=== PATIENT | male | born 1960 | race Caucasian/White ===

== ENCOUNTER 2017-12-29 19:58 | Inpatient (IN) | payer MEDICARE, MEDICAID ==
[~2017-12-29] VITALS: Ht 172.7 cm; Wt 76.2 kg
[2017-12-29 20:00] VITALS: BP 115/80
[2017-12-29] MEDS ORDERED: ABILIFY20 MG ORAL (20:01)
[2017-12-29] MEDS ORDERED: COLACE100 MG ORAL (20:02)
[2017-12-29] MEDS ORDERED: BENZTROPINE ME0.5 MG PO (20:02)
[2017-12-29] MEDS ORDERED: ATORVASTATIN CA20 MG ORAL (20:02)
[2017-12-29] MEDS ORDERED: DITROPAN XL5 MG ORAL (20:03)
[2017-12-29] MEDS ORDERED: DEPAKOTE250 MG PO (20:03)
[2017-12-29] MEDS ORDERED: BISACODYL5 MG RECTAL (20:04)
[2017-12-29] MEDS ORDERED: KLONOPIN1 MG ORAL (20:04)
[2017-12-29] MEDS ORDERED: MILK OF MA400 MG/51 ORAL (20:05)
[2017-12-29] MEDS ORDERED: NORCO 5-325 TA1 EACH ORAL (20:06)
[2017-12-29] MEDS ORDERED: SENNA8.6 M2 PO (20:06)
[2017-12-29] MEDS ORDERED: TRAZODONE HCL150 MG ORAL (20:07)
[2017-12-29] MEDS ORDERED: SEROQUEL200 MG ORAL (20:07)
[2017-12-29] MEDS ORDERED: ACETAMINOPHEN325 M1 ORAL (20:11)
[2017-12-29] MEDS ORDERED: Pantoprazole Inj IV ONE (20:15)
[2017-12-29 20:45] LABS: INR 1.1 (0.9-1.1)
[2017-12-29 20:54] LABS: RED BLOOD COUNT 6.47 M/UL (4.70-6.10); WHITE BLOOD COUNT 15.3 K/UL (4.8-10.8)
[2017-12-29 20:55] LABS: MEAN CORPUSCULAR VOLUME 86 FL (80-99); NEUTROPHILS % (AUTO) 83.1 % (45.0-75.0); PLATELET COUNT 255 K/UL (150-450); RED CELL DISTRIBUTION WIDTH 11.4 % (11.6-14.8)
[2017-12-29 20:56] LABS: ANION GAP 9 mmol/L (5-15); BASOPHILS % (AUTO) 0.3 % (0.0-2.0); BLOOD UREA NITROGEN 20 mg/dL (7-18); CALCIUM 9.7 MG/DL (8.5-10.1); CARBON DIOXIDE 30 MMOL/L (21-32); CHLORIDE 103 MMOL/L (98-107); CREATININE 1.7 MG/DL (0.55-1.30); LYMPHOCYTES % (AUTO) 8.2 % (20.0-45.0); MONOCYTES % (AUTO) 3.4 % (1.0-10.0); POTASSIUM 4.1 MMOL/L (3.5-5.1); SODIUM 142 MMOL/L (136-145)
[2017-12-29 21:01] LABS: ALANINE AMINOTRANSFERASE 51 U/L (12-78); ALBUMIN/GLOBULIN RATIO 0.9 (1.0-2.7); ALKALINE PHOSPHATASE 175 U/L (46-116); ASPARTATE AMINO TRANSFERASE 12 U/L (15-37); BILIRUBIN,TOTAL 0.7 MG/DL (0.2-1.0)
[2017-12-29 21:15] VITALS: BP 115/72
[2017-12-29 22:33] VITALS: BP 13/71
--- NOTE | 2017-12-29 23:25 | Emergency Room Report ---
History of Present Illness General Chief Complaint: Gastrointestinal Illness Present Illness HPI 57-year-old male presents ED for evaluation. Brought in by longterm facility for coffee-ground emesis at facility today. Occurred multiple times. Upon arrival patient complaining of abdominal pain, dull, epigastric, 8 out of 10, nonradiating. Denies fevers or chills. Denies chest pain or shortness of breath. No other aggravating relieving factors. Denies any other associated symptoms Allergies: Coded Allergies: CHLORPROMAZINE (Verified Allergy, Mild, 12/29/17) HALOPERIDOL (Verified Allergy, Mild, 12/29/17) PHENOBARBITAL (Verified Allergy, Mild, 12/29/17) Patient History Past Medical History: COPD, seizures, psych hx Past Surgical History: none Pertinent Family History: none Social History: Denies: smoking, alcohol use, drug use Immunizations: UTD Reviewed Nursing Documentation: PMH: Agreed; PSxH: Agreed Nursing Documentation-PMH Hx COPD: Yes History Of Psychiatric Problem: Yes - schizophrenia Hx Seizures: Yes Review of Systems All Other Systems: negative except mentioned in HPI Physical Exam Vital Signs Date Time Temp Pulse Resp B/P (MAP) Pulse Ox O2 Delivery O2 Flow Rate FiO2 12/29/17 19:50 97.7 111 20 111/81 93 Room Air 97.7 Sp02 EP Interpretation: reviewed, normal General Appearance: no apparent distress, alert, GCS 15, non-toxic Head: normocephalic, atraumatic Eyes: bilateral eye normal inspection, bilateral eye PERRL ENT: hearing grossly normal, normal pharynx, no angioedema, normal voice Neck: full range of motion, supple/symm/no masses Respiratory: chest non-tender, lungs clear, normal breath sounds, speaking full sentences Cardiovascular #1: regular rate, rhythm, no edema Cardiovascular #2: 2+ carotid (R), 2+ carotid (L), 2+ radial (R), 2+ radial (L) , 2+ dorsalis pedis (R), 2+ dorsalis pedis (L) Gastrointestinal: normal bowel sounds, non tender, soft, non-distended, no guarding, no rebound Rectal: deferred Genitourinary: normal inspection, no CVA tenderness Musculoskeletal: back normal, gait/station normal, normal range of motion, non- tender Neurologic: alert, oriented x3, responsive, motor strength/tone normal, sensory intact, speech normal Psychiatric: judgement/insight normal, memory normal, mood/affect normal, no suicidal/homicidal ideation Reflexes: 3+ bicep (R), 3+ bicep (L), 3+ tricep (R), 3+ tricep (L), 3+ knee (R) , 3+ knee (L) Skin: normal color, no rash, warm/dry, well hydrated Lymphatic: no adenopathy Medical Decision Making Diagnostic Impression: Primary Impression: Upper GI bleeding Additional Impression: Renal insufficiency ER Course Hospital Course 57 yo M presents to ED c/o coffee groud emesis Differential diagnoses include: UGIB, LGIB, gastritis Clinical course Patient placed on stretcher. potline monitor. After initial history and physical I ordered labs, IV fluids, protonix, EKG Labs - noted leukocytosis, Hb/Hct stable. BUN/Cr elevated EKG - NSR, no acute ischemic changes inteppreted by me Case discussed with Dr. Tierney and he agreed to accept the patient to his service for further care and support I feel this is a highly complex case requiring extensive working including EKG/ Rhythm strip, Xray/CT/US, Blood/urine lab work, repeat exams while in ED, and administration of strong opiates/narcotics for pain control, admission to hospital or close patient follow up. Diagnosis - UGIB Patient admitted to telemetry in serious condition Labs Test 12/29/17 20:20 White Blood Count 15.3 K/UL (4.8-10.8) Red Blood Count 6.47 M/UL (4.70-6.10) Hemoglobin 18.0 G/DL (14.2-18.0) Hematocrit 56.0 % (42.0-52.0) Mean Corpuscular Volume 86 FL (80-99) Mean Corpuscular Hemoglobin 30.0 PG (27.0-31.0) Mean Corpuscular Hemoglobin Concent 34.8 G/DL (32.0-36.0) Red Cell Distribution Width 11.4 % (11.6-14.8) Platelet Count 255 K/UL (150-450) Mean Platelet Volume 7.4 FL (6.5-10.1) Neutrophils (%) (Auto) 83.1 % (45.0-75.0) Lymphocytes (%) (Auto) 8.2 % (20.0-45.0) Monocytes (%) (Auto) 3.4 % (1.0-10.0) Eosinophils (%) (Auto) 0.0 % (0.0-3.0) Basophils (%) (Auto) 0.3 % (0.0-2.0) Prothrombin Time 11.2 SEC (9.30-11.50) Prothromb Time International Ratio 1.1 (0.9-1.1) Activated Partial Thromboplast Time 31 SEC (23-33) Sodium Level 142 MMOL/L (136-145) Potassium Level 4.1 MMOL/L (3.5-5.1) Chloride Level 103 MMOL/L (98-107) Carbon Dioxide Level 30 MMOL/L (21-32) Anion Gap 9 mmol/L (5-15) Blood Urea Nitrogen 20 mg/dL (7-18) Creatinine 1.7 MG/DL (0.55-1.30) Estimat Glomerular Filtration Rate 42.1 mL/min (>60) Glucose Level 148 MG/DL (74-106) Calcium Level 9.7 MG/DL (8.5-10.1) Total Bilirubin 0.7 MG/DL (0.2-1.0) Aspartate Amino Transf (AST/SGOT) 12 U/L (15-37) Alanine Aminotransferase (ALT/SGPT) 51 U/L (12-78) Alkaline Phosphatase 175 U/L (46-116) Total Protein 8.5 G/DL (6.4-8.2) Albumin 4.0 G/DL (3.4-5.0) Globulin 4.5 g/dL Albumin/Globulin Ratio 0.9 (1.0-2.7) Lipase 105 U/L (73-393) EKG Diagnostic Results Rate: normal Rhythm: NSR ST Segments: no acute changes ASA given to the pt in ED: No Rhythm Strip Diag. Results EP Interpretation: yes Rhythm: NSR, no PVC's, no ectopy Last Vital Signs Date Time Temp Pulse Resp B/P (MAP) Pulse Ox O2 Delivery O2 Flow Rate FiO2 12/29/17 22:33 97.7 82 21 13/71 100 Room Air 97.7 Status: improved Disposition: ADMITTED INPATIENT Condition: Serious Referrals: Micheal Tierney DO (PCP) Ryan Guerra MD Dec 29, 2017 23:25
[2017-12-30] VITALS: BP 98/77
[2017-12-30] MEDS ORDERED: Norco 5mg/325mg tab ORAL PRN (01:45)
[2017-12-30] MEDS ORDERED: Sennosides 8.6mg ORAL SCH (01:45)
[2017-12-30] MEDS: D5 1/2NS 1,000 ML IV SCH ×2 (03:00→19:29)
[2017-12-30] MEDS ORDERED: Sennosides 8.6mg ORAL PRN (03:45)
[2017-12-30 04:00] VITALS: BP 123/76
[2017-12-30 07:32] LABS: BASOPHILS % (AUTO) 0.6 % (0.0-2.0); EOSINOPHILS % (AUTO) 1.1 % (0.0-3.0); HEMATOCRIT 42.2 % (42.0-52.0); HEMOGLOBIN 15.1 G/DL (14.2-18.0); LYMPHOCYTES % (AUTO) 17.8 % (20.0-45.0); MEAN CORPUSCULAR VOLUME 83 FL (80-99); MONOCYTES % (AUTO) 7.8 % (1.0-10.0); NEUTROPHILS % (AUTO) 72.8 % (45.0-75.0); PLATELET COUNT 208 K/UL (150-450); RED BLOOD COUNT 5.08 M/UL (4.70-6.10); RED CELL DISTRIBUTION WIDTH 11.2 % (11.6-14.8); WHITE BLOOD COUNT 12.8 K/UL (4.8-10.8)
[2017-12-30 07:48] LABS: ANION GAP 7 mmol/L (5-15); BLOOD UREA NITROGEN 18 mg/dL (7-18); CALCIUM 8.3 MG/DL (8.5-10.1); CARBON DIOXIDE 25 MMOL/L (21-32); CHLORIDE 108 MMOL/L (98-107); CREATININE 1.2 MG/DL (0.55-1.30); POTASSIUM 4.1 MMOL/L (3.5-5.1); SODIUM 140 MMOL/L (136-145)
[2017-12-30 08:00] VITALS: BP 106/66
[2017-12-30] MEDS: Docusate 100mg cap ORAL SCH ×2 (08:26→08:34)
[2017-12-30] MEDS: Bisacodyl EC 5mg tab ORAL SCH ×2 (08:26→08:35)
[2017-12-30] MEDS: Milk of Magnesia 30ml Ud ORAL SCH ×2 (08:26→08:35)
[2017-12-30] MEDS: Depakote 500mg tab ORAL SCH ×3 (08:27→21:00)
--- NOTE | 2017-12-30 09:30 | History and Physical Report ---
DATE OF ADMISSION: 12/29/2017 APPROXIMATE TIME: 8 a.m. CONSULTANTS: 1. Jose Armando Sultana M.D. 2. Lonnie Small M.D. 3. Marj Arellano M.D. 4. Sedrick Christiansen M.D. CHIEF COMPLAINT: Vomiting blood and GI bleed. BRIEF HISTORY: The patient is a 57-year-old male from [facility] presented with the above-mentioned diagnosis, admitted to telemetry for further care. Currently, slightly anxious in bed, no complaint. REVIEW OF SYSTEMS: No chest pain. Slight short of breath. Slight nausea and vomiting. No diarrhea. PAST MEDICAL HISTORY: HIV and bipolar. PAST SURGICAL HISTORY: Right hip. MEDICATIONS: Include Lipitor, Desyrel, Abilify, Dulcolax, Klonopin, Depakote, Colace, , Seroquel, Senokot, Tylenol, and [place]. ALLERGIES: Haldol and Thorazine. SOCIAL HISTORY: Positive smoking. No alcohol. No intravenous drug abuse. FAMILY HISTORY: Noncontributory. PHYSICAL EXAMINATION: GENERAL: Slightly anxious in bed, oriented x3, no acute distress. VITAL SIGNS: Temperature is 97, pulse 81, respirations 18, and blood pressure 106/66. CARDIOVASCULAR: No murmurs. LUNGS: Distant and clear. ABDOMEN: Bowel sounds positive. Nontender. Nondistended. EXTREMITIES: No cyanosis, clubbing, or edema. NEUROLOGIC: The patient moves all extremities, slightly weak. LABORATORY AND DIAGNOSTIC DATA: Laboratories, at this time show white count 12.8, otherwise CBC is normal. BMP shows chloride 108, glucose 123, otherwise normal. INR is 1.1 and PTT is 31. ASSESSMENT: 1. GI bleed. 2. Vomiting blood. 3. HIV. 4. Bipolar. PLAN: 1. Continue previous medications. 2. NPO. 3. IV fluids. 4. Pain control. 5. OT, PT, dietary evaluation. 6. CBC and BMP in the morning. 7. Continue to follow the patient medically. Micheal Tierney D.O. DR: TRISH JOB#: [id number] CC:
--- NOTE | 2017-12-30 11:25 | Consultation ---
History of Present Illness General Date patient seen: Dec 30, 2017 Chief Complaint: Gastrointestinal Illness Reason for Consultation: inpatient management/copd Present Illness HPI 57-year-old male COPD, seizures, psych hx presented to ED for evaluation of coffee-ground emesis at facility, multiple times. Upon arrival patient complaining of abdominal pain, dull, epigastric, 8 out of 10, nonradiating. Denies fevers or chills. Denies chest pain or shortness of breath. No other aggravating relieving factors. Denies any other associated symptoms. Pt is admitted to [facility] for further evaluation. Allergies: Coded Allergies: CHLORPROMAZINE (Verified Allergy, Mild, 12/29/17) HALOPERIDOL (Verified Allergy, Mild, 12/29/17) PHENOBARBITAL (Verified Allergy, Mild, 12/29/17) Medication History Scheduled Aripiprazole* (Abilify*), 30 MG ORAL DAILY, (Reported) Atorvastatin Calcium* (Atorvastatin Calcium*), 5 MG ORAL BEDTIME, (Reported) Bisacodyl* (Dulcolax*), 10 MG RECTAL DAILY, (Reported) Clonazepam* (Klonopin*), 1 MG ORAL Q12HR, (Reported) Divalproex Sodium* (Depakote*), 500 MG PO Q12HR, (Reported) Docusate Sodium* (Colace*), 100 MG ORAL DAILY, (Reported) Magnesium Hydroxide* (Milk Of Magnesia*), 30 ML ORAL DAILY, (Reported) Oxybutynin Chloride (Ditropan Xl), 5 MG ORAL DAILY, (Reported) Quetiapine Fumarate* (Seroquel*), 300 MG ORAL DAILY, (Reported) Trazodone* (Trazodone*), 50 MG ORAL BEDTIME, (Reported) Scheduled PRN Acetaminophen* (Acetaminophen 325MG Tablet*), 325 MG ORAL Q4H PRN for Pain Scale (3-5), (Reported) Hydrocodone Bit/Acetaminophen 5-325* (Plains 5-325*), 1 TAB ORAL Q4H PRN for For Pain, (Reported) Miscellaneous Medications Benztropine Mesylate* (Cogentin*), 1 MG PO, (Reported) Sennosides (Senna), 2 MG PO, (Reported) Patient History Healthcare decision maker Resuscitation status Full Code Advanced Directive on File No Past Medical/Surgical History Past Medical/Surgical History: (1) COPD (chronic obstructive pulmonary disease) (2) Psychosis (3) Seizure disorder Review of Systems All Other Systems: negative except mentioned in HPI Physical Exam General Appearance: WD/WN Lines, tubes and drains: peripheral HEENT: normocephalic, atraumatic Neck: non-tender, normal alignment Respiratory/Chest: chest wall non-tender, lungs clear Cardiovascular/Chest: normal peripheral pulses, normal rate Abdomen: normal bowel sounds Genitourinary/Rectal: normal genital exam Extremities: normal range of motion Last 24 Hour Vital Signs Date Time Temp Pulse Resp B/P (MAP) Pulse Ox O2 Delivery O2 Flow Rate FiO2 12/30/17 10:46 Room Air 12/30/17 08:00 80 12/30/17 08:00 97.9 81 18 106/66 (79) 97 97.9 12/30/17 04:00 90 12/30/17 04:00 97.2 78 19 123/76 (92) 96 97.2 12/30/17 00:00 97.0 103 23 98/77 (84) 96 97.0 12/30/17 00:00 84 12/29/17 23:01 Room Air 12/29/17 22:33 97.7 82 21 13/71 100 Room Air 97.7 12/29/17 22:32 97.7 88 24 118/72 100 Room Air 97.7 12/29/17 21:15 97.7 84 21 115/72 100 Room Air 97.7 12/29/17 20:00 97.7 70 15 115/80 100 Room Air 97.7 12/29/17 19:50 97.7 111 20 111/81 93 Room Air 97.7 Intake and Output 12/29/17 12/30/17 19:00 07:00 Intake Total 150 ml Output Total 150 ml Balance 0 ml Intake Oral 150 ml Output Urine Total 150 ml Laboratory Tests Test 12/29/17 20:20 12/30/17 06:45 White Blood Count 15.3 K/UL (4.8-10.8) H 12.8 K/UL (4.8-10.8) H Red Blood Count 6.47 M/UL (4.70-6.10) H 5.08 M/UL (4.70-6.10) Hemoglobin 18.0 G/DL (14.2-18.0) 15.1 G/DL (14.2-18.0) Hematocrit 56.0 % (42.0-52.0) H 42.2 % (42.0-52.0) Mean Corpuscular Volume 86 FL (80-99) 83 FL (80-99) Mean Corpuscular Hemoglobin 30.0 PG (27.0-31.0) 29.6 PG (27.0-31.0) Mean Corpuscular Hemoglobin Concent 34.8 G/DL (32.0-36.0) 35.7 G/DL (32.0-36.0) Red Cell Distribution Width 11.4 % (11.6-14.8) L 11.2 % (11.6-14.8) L Platelet Count 255 K/UL (150-450) 208 K/UL (150-450) Mean Platelet Volume 7.4 FL (6.5-10.1) 8.3 FL (6.5-10.1) Neutrophils (%) (Auto) 83.1 % (45.0-75.0) H 72.8 % (45.0-75.0) Lymphocytes (%) (Auto) 8.2 % (20.0-45.0) L 17.8 % (20.0-45.0) L Monocytes (%) (Auto) 3.4 % (1.0-10.0) 7.8 % (1.0-10.0) Eosinophils (%) (Auto) 0.0 % (0.0-3.0) 1.1 % (0.0-3.0) Basophils (%) (Auto) 0.3 % (0.0-2.0) 0.6 % (0.0-2.0) Prothrombin Time 11.2 SEC (9.30-11.50) Prothromb Time International Ratio 1.1 (0.9-1.1) Activated Partial Thromboplast Time 31 SEC (23-33) Sodium Level 142 MMOL/L (136-145) 140 MMOL/L (136-145) Potassium Level 4.1 MMOL/L (3.5-5.1) 4.1 MMOL/L (3.5-5.1) Chloride Level 103 MMOL/L (98-107) 108 MMOL/L (98-107) H Carbon Dioxide Level 30 MMOL/L (21-32) 25 MMOL/L (21-32) Anion Gap 9 mmol/L (5-15) 7 mmol/L (5-15) Blood Urea Nitrogen 20 mg/dL (7-18) H 18 mg/dL (7-18) Creatinine 1.7 MG/DL (0.55-1.30) H 1.2 MG/DL (0.55-1.30) Estimat Glomerular Filtration Rate 42.1 mL/min (>60) > 60 mL/min (>60) Glucose Level 148 MG/DL (74-106) H 123 MG/DL (74-106) H Calcium Level 9.7 MG/DL (8.5-10.1) 8.3 MG/DL (8.5-10.1) L Total Bilirubin 0.7 MG/DL (0.2-1.0) Aspartate Amino Transf (AST/SGOT) 12 U/L (15-37) L Alanine Aminotransferase (ALT/SGPT) 51 U/L (12-78) Alkaline Phosphatase 175 U/L (46-116) H Total Protein 8.5 G/DL (6.4-8.2) H Albumin 4.0 G/DL (3.4-5.0) Globulin 4.5 g/dL Albumin/Globulin Ratio 0.9 (1.0-2.7) L Lipase 105 U/L (73-393) Microbiology Date/Time Source Procedure Growth Status 12/29/17 23:30 Rectum Received Height (Feet): 5 Height (Inches): 8.00 Weight (Pounds): 168 Medications Current Medications Medications (Trade) Dose Ordered Sig/Justin Route PRN Reason Start Time Stop Time Status Last Admin Dose Admin Acetaminophen (Tylenol) 325 mg Q4H PRN ORAL Pain Scale (3-5) 12/30/17 01:45 01/29/18 01:44 Acetaminophen/ Hydrocodone Bitart (Plains 5/325) 1 tab Q4H PRN ORAL For Pain 12/30/17 01:45 01/06/18 01:44 Aripiprazole (Abilify) 30 mg DAILY ORAL 12/30/17 09:00 01/29/18 08:59 12/30/17 08:26 Atorvastatin Calcium (Lipitor) 5 mg BEDTIME ORAL 12/30/17 21:00 01/29/18 20:59 Bisacodyl (Dulcolax) 10 mg DAILY ORAL 12/30/17 09:00 01/29/18 08:59 Clonazepam (KlonoPIN) 1 mg Q12HR ORAL 12/30/17 09:00 01/06/18 08:59 12/30/17 08:27 Dextrose/Sodium Chloride 1,000 ml @ 60 mls/hr [id number] IV 12/30/17 03:00 01/29/18 02:59 12/30/17 03:00 Divalproex Sodium (Depakote) 500 mg Q12HR ORAL 12/30/17 09:00 01/29/18 08:59 12/30/17 08:27 Docusate Sodium (Colace) 100 mg DAILY ORAL 12/30/17 09:00 01/29/18 08:59 Magnesium Hydroxide (Mom) 30 ml DAILY ORAL 12/30/17 09:00 01/29/18 08:59 Quetiapine Fumarate (SEROquel) 300 mg DAILY ORAL 12/30/17 09:00 01/29/18 08:59 12/30/17 08:27 Sennosides (Senokot) 1 tab DAILY PRN ORAL constipation 12/30/17 03:45 01/29/18 01:44 Trazodone HCl (Desyrel) 50 mg BEDTIME ORAL 12/30/17 21:00 01/29/18 20:59 Assessment/Plan Problem List: (1) Upper GI bleeding ICD Codes: K92.2 - Gastrointestinal hemorrhage, unspecified SNOMED: 61556402 (2) COPD (chronic obstructive pulmonary disease) ICD Codes: J44.9 - Chronic obstructive pulmonary disease, unspecified SNOMED: 50769882 (3) Psychosis ICD Codes: F29 - Unspecified psychosis not due to a substance or known physiological condition SNOMED: 75786373 (4) Seizure disorder ICD Codes: G40.909 - Epilepsy, unspecified, not intractable, without status epilepticus SNOMED: 724298653 Assessment/Plan npo iv fluids check h/h prbc prn respiratory treatment resume psych meds seizure precaution dvt prophylaxis. Lonnie Small MD Dec 30, 2017 11:25
[2017-12-30 12:00] VITALS: BP 98/65
[2017-12-30] MEDS ORDERED: LORazepam 1mg tab ORAL PRN (14:55)
[2017-12-30 16:00] VITALS: BP 97/61
[2017-12-30 20:00] VITALS: BP 96/71
[2017-12-30] MEDS: TraZODone 50mg tab ORAL SCH (20:35)
--- NOTE | 2017-12-30 23:45 | Consultation ---
DATE OF CONSULTATION: 12/30/2017 GASTROENTEROLOGY CONSULTATION CONSULTING PHYSICIAN: Mehran Short M.D. CHIEF COMPLAINT: I was asked to see this patient by Dr. Micheal Tierney for evaluation of gastrointestinal bleeding. HISTORY OF PRESENT ILLNESS: The patient is a 57-year-old white man with HIV, who comes into the hospital due to coffee-ground emesis in a nursing facility multiple times. The patient had some dull epigastric abdominal pain on admission, which did not improve. He also has not had anymore emesis overnight and therefore he wants to be placed on regular diet. He denies having had any history of peptic ulcer disease in the past and has never had endoscopy. PAST MEDICAL HISTORY: History of COPD, seizure disorder, psychiatric history, and HIV positivity. FAMILY HISTORY: Noncontributory. SOCIAL HISTORY: The patient smokes, but does not drink alcohol or use drugs. REVIEW OF SYSTEMS: Otherwise negative. PHYSICAL EXAMINATION: GENERAL: This is a well developed, well nourished white man, seen in his room. HEENT: Normocephalic and atraumatic. Sclerae anicteric. Oropharynx clear. NECK: Supple. CHEST: Clear to auscultation. CARDIOVASCULAR: Revealed regular rate. ABDOMEN: Soft. Good bowel sounds. There is no organomegaly. EXTREMITIES: Revealed no edema. NEUROLOGIC: Grossly nonfocal. LABORATORY DATA: Noted. ASSESSMENT: This patient presents with one-day history of nausea and vomiting, which appeared to be dark and possibly bleeding in nature. However, his H&H is very well preserved and he has not had any more vomiting or hematemesis. He was placed on a regular diet until the time of the endoscopy, which will not be for another 2 days. He is already on acid blockade. The indications, risks, alternatives, and possible complications of the endoscopic intervention were explained to the patient and informed consent was obtained. RECOMMENDATIONS: 1. P.o. diet as tolerated. 2. Endoscopy Monday. 3. Followup CBC. 4. Protonix. Thank you for asking me to participate in the care of this patient. Mehran Short M.D. DR: PEDRO JOB#: [id number] CC: FABI
[2017-12-31] VITALS: BP 102/73
--- NOTE | 2017-12-31 00:15 | Consultation ---
DATE OF CONSULTATION: 12/29/2017 CONSULTING PHYSICIAN: Marj Arellano M.D. HISTORY OF PRESENT ILLNESS: This is a 57-year-old male patient. The patient came to the hospital secondary to upper GI bleed, but he is very irritable and agitated. He has a history of schizoaffective, bipolar type. On interview, I saw and assessed him today. He is very irritable and agitated. I tried to talk to him about some of his past psychiatric history and psychotropic medications. He initially was selectively mute. He stated, "there is nothing wrong, I don't have any psych history, I shouldn't be on this crazy medications" and then he became selectively mute and seemed to be more agitated as the interview progressed. He is a very poor historian, but seemed to have very poor insight into psychiatric illness and he is having extreme mood lability and because of his increase in mood lability, that is why his attending has requested daily psychiatric consultation. MEDICAL PROBLEMS: He has HIV, GI bleeding, and vomiting as well. PSYCHOTROPIC MEDICATIONS ON ADMISSION: The patient is on a psychotropic medication regimen consisting of Ativan 1 mg every 6 hours p.r.n., Abilify 30 mg daily, Klonopin 1 mg twice a day, trazodone 50 mg nightly, Depakote 500 mg q.12 h., and Seroquel 200 mg nightly. ALLERGIES: Allergic to Haldol, Thorazine, and phenobarbital. SUBSTANCE ABUSE HISTORY: This patient is denying any use of any drug or alcohol use. FAMILY PSYCHIATRIC HISTORY: Denies. PAIN ASSESSMENT: 0/10. DEVELOPMENTAL PROBLEMS: Denies. SOCIAL HISTORY: The patient lives in [facility]. Financially supported by [employer] and Medicare. PSYCHIATRIC HISTORY: He is schizoaffective, bipolar type. He states he had previous psych admissions, but he is very angry about it. STRENGTHS: He is motivated to get better and has a place to live. WEAKNESSES: He is impulsive and minimal support system. MENTAL STATUS EXAMINATION: This is a male patient who is 57 years old. His appearance is disheveled. Attitude, irritable and agitated. Affect is guarded and restricted. Intellect is poor because he has no current events. Mood is depressed and anxious. Motor activity, psychomotor agitation. Attention span is poor because he is unable to spell world backwards. Orientation times x3, oriented to person, place, and time, but not to situation. Speech is low volume and slurred. Thought process is disorganized and illogical. Thought content, he has paranoia that people are plotting against him. Perception is poor because he has perceptions such as auditory hallucinations. Abstract reasoning, poor abstract reasoning because he does not understand proverbs and he only thinks in terms of concrete thinking. His insight is poor because he does not recognize having a mental disorder. Judgment is poor because he does not work on his consequences of his action. Short-term memory, 3/3 word recall after 5-minute delay with good short-term memory. Long-term memory is poor because he does not recognize long-term events in his life such as high school he went to. Suicidality, he admits to suicidal ideations intermittently with no plan. Able to contract for safety while in the hospital. Homicidality, denies. DIAGNOSES: 1. Schizoaffective, bipolar type. 2. Medical - gastrointestinal bleeding. 3. Psychosocial stressors - financial. PLAN: I am going to continue treating this patient with Ativan 1 mg every 6 hours p.r.n. anxiety and agitation, Abilify 30 mg daily, Klonopin 1 mg q.12 h., Depakote 500 mg q.12 h., Seroquel 300 mg nightly. Provided 20 minutes of cognitive behavioral therapy to identify his automatic negative thoughts and help him to convert those automatic negative thoughts to positive thoughts to reduce depression and anxiety. A 20 minutes of cognitive behavioral therapy. I would like to thank Dr. Micheal Tierney for this interesting consultation. I will be happy to follow this patient with you throughout his hospital course. Chart is reviewed and discussed with the staff. The patient was seen and assessed at bedside. Marj Arellano M.D. DR: REJI JOB#: [id number] CC:
[2017-12-31 04:00] VITALS: BP 100/63
[2017-12-31 08:00] VITALS: BP 110/63
--- NOTE | 2017-12-31 08:50 | General Progress Note ---
Assessment/Plan Problem List: (1) Bipolar 1 disorder ICD Codes: F31.9 - Bipolar disorder, unspecified SNOMED: 051508930 (2) GI (gastrointestinal bleed) ICD Codes: K92.2 - Gastrointestinal hemorrhage, unspecified SNOMED: 09125662 (3) Psychosis ICD Codes: F29 - Unspecified psychosis not due to a substance or known physiological condition SNOMED: 72676425 Status: unchanged Assessment/Plan ot pt diet abx ivf gi f/u cbc bmp am Subjective Constitutional: Reports: weakness Allergies: Coded Allergies: CHLORPROMAZINE (Verified Allergy, Mild, 12/29/17) HALOPERIDOL (Verified Allergy, Mild, 12/29/17) PHENOBARBITAL (Verified Allergy, Mild, 12/29/17) All Systems: reviewed and negative except above Subjective calm in bed Objective Last 24 Hour Vital Signs Date Time Temp Pulse Resp B/P (MAP) Pulse Ox O2 Delivery O2 Flow Rate FiO2 12/31/17 04:00 80 12/31/17 04:00 98.2 85 16 100/63 (75) 96 98.2 12/31/17 00:00 97.8 97 17 102/73 (83) 98 97.8 12/31/17 00:00 83 12/30/17 21:00 Room Air 12/30/17 20:00 97.2 89 18 96/71 (79) 97 97.2 12/30/17 20:00 74 12/30/17 16:00 92 12/30/17 16:00 97.3 90 18 97/61 (73) 100 97.3 12/30/17 12:00 97.5 81 18 98/65 (76) 97 97.5 12/30/17 12:00 82 12/30/17 10:46 Room Air Intake and Output 12/30/17 12/31/17 19:00 07:00 Intake Total 240 ml 931 ml Output Total 350 ml 800 ml Balance -110 ml 131 ml Intake Oral 240 ml 240 ml IV Total 691 ml Output Urine Total 350 ml 800 ml Height (Feet): 5 Height (Inches): 8.00 Weight (Pounds): 168 General Appearance: lethargic EENT: normal ENT inspection Neck: normal alignment Cardiovascular: normal peripheral pulses, normal rate, regular rhythm Respiratory/Chest: chest wall non-tender, lungs clear, normal breath sounds Abdomen: normal bowel sounds, non tender, soft Extremities: normal inspection Edema: no edema noted Arm (L), no edema noted Arm (R), no edema noted Leg (L), no edema noted Leg (R), no edema noted Pedal (L), no edema noted Pedal (R), no edema noted Generalized Neurologic: motor weakness Skin: normal pigmentation, warm/dry Micheal Tierney DO Dec 31, 2017 08:50
[2017-12-31] MEDS: Milk of Magnesia 30ml Ud ORAL SCH ×2 (09:00→10:10)
[2017-12-31] MEDS: Depakote 500mg tab ORAL SCH ×3 (09:00→20:51)
[2017-12-31] MEDS: Docusate 100mg cap ORAL SCH ×2 (09:00→10:11)
[2017-12-31] MEDS: Bisacodyl EC 5mg tab ORAL SCH (10:11)
[2017-12-31 11:17] LABS: BASOPHILS % (AUTO) 0.5 % (0.0-2.0); EOSINOPHILS % (AUTO) 2.3 % (0.0-3.0); HEMATOCRIT 41.1 % (42.0-52.0); HEMOGLOBIN 13.9 G/DL (14.2-18.0); LYMPHOCYTES % (AUTO) 23.5 % (20.0-45.0); MEAN CORPUSCULAR VOLUME 84 FL (80-99); NEUTROPHILS % (AUTO) 65.6 % (45.0-75.0); PLATELET COUNT 202 K/UL (150-450); RED BLOOD COUNT 4.91 M/UL (4.70-6.10); RED CELL DISTRIBUTION WIDTH 11.4 % (11.6-14.8); WHITE BLOOD COUNT 8.9 K/UL (4.8-10.8)
[2017-12-31 11:51] LABS: ALANINE AMINOTRANSFERASE 13 U/L (12-78); ALBUMIN 2.8 G/DL (3.4-5.0); ALBUMIN/GLOBULIN RATIO 0.8 (1.0-2.7); ALKALINE PHOSPHATASE 120 U/L (46-116); ANION GAP 9 mmol/L (5-15); ASPARTATE AMINO TRANSFERASE 10 U/L (15-37); BILIRUBIN,TOTAL 0.3 MG/DL (0.2-1.0); BLOOD UREA NITROGEN 12 mg/dL (7-18); CALCIUM 8.4 MG/DL (8.5-10.1); CARBON DIOXIDE 24 MMOL/L (21-32); CHLORIDE 105 MMOL/L (98-107); CREATININE 1.1 MG/DL (0.55-1.30); PHOSPHORUS 2.7 MG/DL (2.5-4.9); POTASSIUM 3.9 MMOL/L (3.5-5.1); SODIUM 138 MMOL/L (136-145)
[2017-12-31 12:00] VITALS: BP 99/45
[2017-12-31] MEDS: D5 1/2NS 1,000 ML IV SCH (13:41)
--- NOTE | 2017-12-31 13:57 | General Progress Note ---
Assessment/Plan Assessment/Plan Assessment - possible UGIB - HIV (+) - COPD - SZ d/o - Psych d/o Recommendations - PPI - Follow CBC - EGD in am Subjective Allergies: Coded Allergies: CHLORPROMAZINE (Verified Allergy, Mild, 12/29/17) HALOPERIDOL (Verified Allergy, Mild, 12/29/17) PHENOBARBITAL (Verified Allergy, Mild, 12/29/17) Subjective Feels OK no N/V tolerating PO for EGD in am Objective Last 24 Hour Vital Signs Date Time Temp Pulse Resp B/P (MAP) Pulse Ox O2 Delivery O2 Flow Rate FiO2 12/31/17 08:00 97.6 77 18 110/63 (79) 96 97.6 12/31/17 04:00 80 12/31/17 04:00 98.2 85 16 100/63 (75) 96 98.2 12/31/17 00:00 97.8 97 17 102/73 (83) 98 97.8 12/31/17 00:00 83 12/30/17 21:00 Room Air 12/30/17 20:00 97.2 89 18 96/71 (79) 97 97.2 12/30/17 20:00 74 12/30/17 16:00 92 12/30/17 16:00 97.3 90 18 97/61 (73) 100 97.3 Intake and Output 12/30/17 12/31/17 19:00 07:00 Intake Total 240 ml 931 ml Output Total 350 ml 800 ml Balance -110 ml 131 ml Intake Oral 240 ml 240 ml IV Total 691 ml Output Urine Total 350 ml 800 ml Laboratory Tests 12/31/17 09:53: White Blood Count 8.9, Red Blood Count 4.91, Hemoglobin 13.9L, Hematocrit 41.1L , Mean Corpuscular Volume 84, Mean Corpuscular Hemoglobin 28.4, Mean Corpuscular Hemoglobin Concent 33.9, Red Cell Distribution Width 11.4L, Platelet Count 202, Mean Platelet Volume 8.4, Neutrophils (%) (Auto) 65.6, Lymphocytes (%) (Auto) 23.5, Monocytes (%) (Auto) 8.0, Eosinophils (%) (Auto) 2.3, Basophils (%) (Auto) 0.5, Prothrombin Time 10.9, Prothromb Time International Ratio 1.0, Activated Partial Thromboplast Time 28, Sodium Level 138, Potassium Level 3.9, Chloride Level 105, Carbon Dioxide Level 24, Anion Gap 9, Blood Urea Nitrogen 12, Creatinine 1.1, Estimat Glomerular Filtration Rate > 60, Glucose Level 103, Calcium Level 8.4L, Phosphorus Level 2.7, Magnesium Level 1.7L, Total Bilirubin 0.3, Aspartate Amino Transf (AST/SGOT) 10L , Alanine Aminotransferase (ALT/SGPT) 13, Alkaline Phosphatase 120H, Total Protein 6.1L, Albumin 2.8L, Globulin 3.3, Albumin/Globulin Ratio 0.8L Height (Feet): 5 Height (Inches): 8.00 Weight (Pounds): 168 Objective WDWN NCAT supple CTA RRR abd soft ND NT no edema non focal Mehran Short MD Dec 31, 2017 13:57
[2017-12-31] MEDS ORDERED: D5 1/2NS 1000ml IV ONE (15:22)
[2017-12-31 16:00] VITALS: BP 105/60
[2017-12-31 20:00] VITALS: BP 123/71
--- NOTE | 2017-12-31 20:15 | Progress Note ---
DATE: 12/31/2017 SUBJECTIVE: This is a 57-year-old male patient with upper GI bleeding. This patient still has some mood lability, decline in cognition, worsened by the stress of his medical illness. That is why, his attending physician has requested daily psychiatric consultation for this patient. I saw and assessed him at the bedside. He is very confused and disorganized. Mood is labile, agitated and irritable. Cognition has declined below baseline, worsened by stress of his medical illness. That is why, his attending has requested daily psychiatric consultation. MENTAL STATUS EXAMINATION: This is a 57-year-old male. Appearance is disheveled. Attitude, irritable and agitated. Affect, guarded and restricted. Intellect poor. Mood depressed and anxious. Motor activity, psychomotor agitation. Attention span is poor. Orientation x2. Speech is pressured. Thought process, disorganized and illogical. Thought content, auditory hallucinations and paranoid delusions. Insight and judgment is poor. DIAGNOSIS: Schizoaffective, bipolar type. PLAN: Treat him with Abilify 30 mg daily, Depakote 500 mg q.12 h., Seroquel 300 mg at bedtime, and also 01:06__ q.6 h. p.r.n. anxiety and agitation, and trazodone 50 mg at bedtime. Provided 20 minutes of cognitive behavioral therapy to identify his automatic negative thoughts and to help him to convert those automatic negative thoughts to positive thoughts to reduce depression and suicidality. Chart is reviewed. Discussed with staff. A 20 minutes of cognitive behavioral therapy provided. Marj Arellano M.D. DR: KEVIN JOB#: [id number] CC:
[2017-12-31] MEDS: TraZODone 50mg tab ORAL SCH (20:32)
--- NOTE | 2017-12-31 21:35 | Consultation ---
Consult Note Consult Note [id number] Sedrick Christiansen MD Dec 31, 2017 21:34
[2018-01-01] MEDS: D5 1/2NS 1,000 ML IV SCH (04:32)
[2018-01-01] MEDS: Docusate 100mg cap ORAL SCH (09:00)
[2018-01-01] MEDS: Bisacodyl EC 5mg tab ORAL SCH (09:00)
[2018-01-01] MEDS: Milk of Magnesia 30ml Ud ORAL SCH (09:00)
[2018-01-01] MEDS: Depakote 500mg tab ORAL SCH (09:00)
[2018-01-01] MEDS ORDERED: LR 1000ml 1,000 ML IVLG SCH (09:09)
--- NOTE | 2018-01-01 09:09 | Anethesia Preoperative Eval ---
Anesthesia Pre-op PMH/ROS General Date of Evaluation: Jan 01, 2018 Time of Evaluation: 09:36 Anesthesiologist: Lavelle ASA Score: ASA 3 Mallampati Score Class I : Soft palate, uvula, fauces, pillars visible Class II: Soft palate, uvula, fauces visible Class III: Soft palate, base of uvula visible Class IV: Only hard plate visible Mallampati Classification: Class II Surgeon: Rd Diagnosis: Abd Pain Surgical Procedure: EGD Anesthesia History: none Social History: current smoker Family History: no anesthesia problems Allergies: Coded Allergies: CHLORPROMAZINE (Verified Allergy, Mild, 12/29/17) HALOPERIDOL (Verified Allergy, Mild, 12/29/17) PHENOBARBITAL (Verified Allergy, Mild, 12/29/17) Medications: see eMAR Patient NPO?: Yes Past Medical History Pulmonary: Reports: COPD Gastrointestinal/Genitourinary: Reports: ESRD - Dialysis Neurologic/Psychiatric: Reports: other - Seizures Hematology/Immune: Reports: other - HIV Anesthesia Pre-op Phys. Exam Physician Exam Last Vital Signs Date Time Temp Pulse Resp B/P (MAP) Pulse Ox O2 Delivery O2 Flow Rate FiO2 01/01/18 04:00 87 12/31/17 21:00 Room Air 12/31/17 20:00 98.2 18 123/71 (88) 96 98.2 Constitutional: NAD Neurologic: CN 2-12 intact Cardiovascular: RRR Respiratory: CTA Gastrointestinal: S/NT/ND Airway Exam Mallampati Score: Class II MO: limited ROM: limited Teeth: missing, intact Anesthesia Pre-op A/P Labs Hematology Test 12/31/17 09:53 White Blood Count 8.9 K/UL (4.8-10.8) Red Blood Count 4.91 M/UL (4.70-6.10) Hemoglobin 13.9 G/DL (14.2-18.0) L Hematocrit 41.1 % (42.0-52.0) L Mean Corpuscular Volume 84 FL (80-99) Mean Corpuscular Hemoglobin 28.4 PG (27.0-31.0) Mean Corpuscular Hemoglobin Concent 33.9 G/DL (32.0-36.0) Red Cell Distribution Width 11.4 % (11.6-14.8) L Platelet Count 202 K/UL (150-450) Mean Platelet Volume 8.4 FL (6.5-10.1) Neutrophils (%) (Auto) 65.6 % (45.0-75.0) Lymphocytes (%) (Auto) 23.5 % (20.0-45.0) Monocytes (%) (Auto) 8.0 % (1.0-10.0) Eosinophils (%) (Auto) 2.3 % (0.0-3.0) Basophils (%) (Auto) 0.5 % (0.0-2.0) Coagulation Test 12/31/17 09:53 Prothrombin Time 10.9 SEC (9.30-11.50) Prothromb Time International Ratio 1.0 (0.9-1.1) Activated Partial Thromboplast Time 28 SEC (23-33) Chemistry Test 12/31/17 09:53 Sodium Level 138 MMOL/L (136-145) Potassium Level 3.9 MMOL/L (3.5-5.1) Chloride Level 105 MMOL/L (98-107) Carbon Dioxide Level 24 MMOL/L (21-32) Anion Gap 9 mmol/L (5-15) Blood Urea Nitrogen 12 mg/dL (7-18) Creatinine 1.1 MG/DL (0.55-1.30) Estimat Glomerular Filtration Rate > 60 mL/min (>60) Glucose Level 103 MG/DL (74-106) Calcium Level 8.4 MG/DL (8.5-10.1) L Phosphorus Level 2.7 MG/DL (2.5-4.9) Magnesium Level 1.7 MG/DL (1.8-2.4) L Total Bilirubin 0.3 MG/DL (0.2-1.0) Aspartate Amino Transf (AST/SGOT) 10 U/L (15-37) L Alanine Aminotransferase (ALT/SGPT) 13 U/L (12-78) Alkaline Phosphatase 120 U/L (46-116) H Total Protein 6.1 G/DL (6.4-8.2) L Albumin 2.8 G/DL (3.4-5.0) L Globulin 3.3 g/dL Albumin/Globulin Ratio 0.8 (1.0-2.7) L Risk Assessment & Plan Assessment: ASA 3 Plan: GA Status Change Before Surgery: Eyal Garcia MD Jan 01, 2018 09:09
[2018-01-01] MEDS ORDERED: HYDROcodone/Acetamin 7.5/325 tab ORAL PRN (09:15)
[2018-01-01] MEDS ORDERED: LORazepam Inj 2mg/ml 1ml IV PRN (09:15)
[2018-01-01] MEDS ORDERED: Atropine Sulfate 0.4mg/ml inj IVP PRN (09:15)
[2018-01-01] MEDS ORDERED: Norco 5mg/325mg tab ORAL PRN (09:15)
[2018-01-01] MEDS ORDERED: DiphenhydrAMINE 50mg/ml Inj IVP PRN (09:15)
[2018-01-01] MEDS ORDERED: Ketorolac 30mg Inj IV PRN ×2 (09:15)
[2018-01-01] MEDS ORDERED: Hydromorphone 0.5mg/0.5ml inj IVP PRN (09:15)
[2018-01-01] MEDS ORDERED: Meperidine 50mg/ml Inj(FOR RIGORS ONLY) IVP PRN (09:15)
[2018-01-01] MEDS ORDERED: fentaNYL 100 mcg/2 mL IV PRN (09:15)
[2018-01-01] MEDS ORDERED: Midazolam 2mg/2ml Inj IVP PRN (09:15)
[2018-01-01] MEDS ORDERED: oxyCODONE HCL/Acetaminophen 5/325mg ORAL PRN (09:15)
--- NOTE | 2018-01-01 09:19 | Pre-Procedure Note/Attestation ---
Pre-Procedure Note/Attestation Complete Prior to Procedure Planned Procedure: not applicable Procedure Narrative: egd Indications for Procedure Pre-Operative Diagnosis: gib Attestation I attest that I discussed the nature of the procedure; its benefits; risks and complications; and alternatives (and the risks and benefits of such alternatives ), prior to the procedure, with the patient (or the patient's legal inside technical sales representative). I attest that, if there was a reasonable possibility of needing a blood transfusion, the patient (or the patient's legal inside technical sales representative) was given the [facility] standardized written summary, pursuant to the Harry Jazmyn Blood Safety Act ([place] Health and Safety Code # 1645, as amended). I attest that I re-evaluated the patient just prior to the surgery and that there has been no change in the patient's H&P, except as documented below: Jose Armando Sultana MD Jan 01, 2018 09:19
[2018-01-01] MEDS ORDERED: Propofol 200mg/20ml IV ONE (09:30)
[2018-01-01] MEDS ORDERED: Lidocaine 1% MPF 10mg/ml 5ml ONE (09:30)
--- NOTE | 2018-01-01 09:34 | General Progress Note ---
Assessment/Plan Problem List: (1) Bipolar 1 disorder ICD Codes: F31.9 - Bipolar disorder, unspecified SNOMED: 833553546 (2) GI (gastrointestinal bleed) ICD Codes: K92.2 - Gastrointestinal hemorrhage, unspecified SNOMED: 61465467 (3) Seizure disorder ICD Codes: G40.909 - Epilepsy, unspecified, not intractable, without status epilepticus SNOMED: 742087895 (4) COPD (chronic obstructive pulmonary disease) ICD Codes: J44.9 - Chronic obstructive pulmonary disease, unspecified SNOMED: 55236656 (5) Upper GI bleeding ICD Codes: K92.2 - Gastrointestinal hemorrhage, unspecified SNOMED: 18426884 Assessment/Plan plan EGD today Subjective ROS Limited/Unobtainable: Yes Allergies: Coded Allergies: CHLORPROMAZINE (Verified Allergy, Mild, 12/29/17) HALOPERIDOL (Verified Allergy, Mild, 12/29/17) PHENOBARBITAL (Verified Allergy, Mild, 12/29/17) Subjective no event Objective Last 24 Hour Vital Signs Date Time Temp Pulse Resp B/P (MAP) Pulse Ox O2 Delivery O2 Flow Rate FiO2 01/01/18 04:00 87 01/01/18 04:00 87 01/01/18 00:00 68 12/31/17 21:00 Room Air 12/31/17 20:00 84 12/31/17 20:00 98.2 75 18 123/71 (88) 96 98.2 12/31/17 16:00 97.8 80 18 105/60 (75) 97 97.8 12/31/17 16:00 74 12/31/17 12:00 97.7 77 18 99/45 (63) 96 97.7 12/31/17 12:00 70 Intake and Output 12/31/17 01/01/18 19:00 07:00 Intake Total 250 ml 958 ml Output Total 400 ml 1000 ml Balance -150 ml -42 ml Intake Oral 250 ml 240 ml IV Total 718 ml Output Urine Total 400 ml 1000 ml Laboratory Tests 12/31/17 09:53: White Blood Count 8.9, Red Blood Count 4.91, Hemoglobin 13.9L, Hematocrit 41.1L , Mean Corpuscular Volume 84, Mean Corpuscular Hemoglobin 28.4, Mean Corpuscular Hemoglobin Concent 33.9, Red Cell Distribution Width 11.4L, Platelet Count 202, Mean Platelet Volume 8.4, Neutrophils (%) (Auto) 65.6, Lymphocytes (%) (Auto) 23.5, Monocytes (%) (Auto) 8.0, Eosinophils (%) (Auto) 2.3, Basophils (%) (Auto) 0.5, Prothrombin Time 10.9, Prothromb Time International Ratio 1.0, Activated Partial Thromboplast Time 28, Sodium Level 138, Potassium Level 3.9, Chloride Level 105, Carbon Dioxide Level 24, Anion Gap 9, Blood Urea Nitrogen 12, Creatinine 1.1, Estimat Glomerular Filtration Rate > 60, Glucose Level 103, Calcium Level 8.4L, Phosphorus Level 2.7, Magnesium Level 1.7L, Total Bilirubin 0.3, Aspartate Amino Transf (AST/SGOT) 10L , Alanine Aminotransferase (ALT/SGPT) 13, Alkaline Phosphatase 120H, Total Protein 6.1L, Albumin 2.8L, Globulin 3.3, Albumin/Globulin Ratio 0.8L Height (Feet): 5 Height (Inches): 8.00 Weight (Pounds): 168 General Appearance: alert EENT: normal ENT inspection Neck: supple Cardiovascular: normal rate Respiratory/Chest: decreased breath sounds Abdomen: normal bowel sounds, non tender, soft Extremities: non-tender Jose Armando Sultana MD Jan 01, 2018 09:34
--- NOTE | 2018-01-01 09:52 | Immediate Post-Op Evaluation ---
Immediate Post-Op Evalulation Immediate Post-Op Evalulation Procedure: EGD Date of Evaluation: Jan 01, 2018 Time of Evaluation: 10:11 IV Fluids: 300 LR Blood Products: 0 Estimated Blood Loss: 1 Urinary Output: 0 Blood Pressure Systolic: 103 Blood Pressure Diastolic: 62 Pulse Rate: 78 Respiratory Rate: 16 O2 Sat by Pulse Oximetry: 98 Temperature (Fahrenheit): 97.9 Pain Score (1-10): 1 Nausea: No Vomiting: No Complications 0 Patient Status: awake, reacts, patent, none Hydration Status: adequate Eyal Valderrama MD Jan 01, 2018 09:52
--- NOTE | 2018-01-01 09:53 | 48 Hour Post Anesthesia Eval ---
Post Anesthesia Evaluation Procedure: EGD Date of Evaluation: Jan 01, 2018 Time of Evaluation: 12:34 Blood Pressure Systolic: 106 0: 63 Pulse Rate: 77 Respiratory Rate: 18 Temperature (Fahrenheit): 98.2 O2 Sat by Pulse Oximetry: 98 Airway: patent Nausea: No Vomiting: No Pain Intensity: 1 Hydration Status: adequate Cardiopulmonary Status: Stable Mental Status/LOC: patient returned to baseline Follow-up Care/Observations: 0 Post-Anesthesia Complications: 0 Eyal Valderrama MD Jan 01, 2018 09:53
--- NOTE | 2018-01-01 09:55 | Endoscopy Procedure Note ---
Endoscopy Procedure Note General Indication for Procedure: gib Procedures Performed: EGD Operative Findings/Diagnosis: esophagitis Specimen: yes Pt Tolerated Procedure Well: Yes Estimated Blood Loss: none Anesthesia Anesthesiologist: edwin Anesthesia: MAC Inserted Devices Implant(s) used?: No GI Core Measures 50 yrs or older w/o bx or poly: Not Applicable 10yrs. F/U not recommended: Not Applicable Jose Armando Sultana MD Jan 01, 2018 09:55
[2018-01-01 10:08] VITALS: BP 103/62
[2018-01-01 10:13] VITALS: BP 102/60
[2018-01-01 10:18] VITALS: BP 104/61
[2018-01-01 10:25] VITALS: BP 102/57
--- NOTE | 2018-01-01 11:47 | General Progress Note ---
Assessment/Plan Problem List: (1) Bipolar 1 disorder ICD Codes: F31.9 - Bipolar disorder, unspecified SNOMED: 424897377 (2) GI (gastrointestinal bleed) ICD Codes: K92.2 - Gastrointestinal hemorrhage, unspecified SNOMED: 55201549 (3) Psychosis ICD Codes: F29 - Unspecified psychosis not due to a substance or known physiological condition SNOMED: 84974573 Status: stable, progressing Assessment/Plan ot pt diet abx ivf gi f/u cbc bmp am dc plan if clear Subjective Constitutional: Reports: weakness Allergies: Coded Allergies: CHLORPROMAZINE (Verified Allergy, Mild, 12/29/17) HALOPERIDOL (Verified Allergy, Mild, 12/29/17) PHENOBARBITAL (Verified Allergy, Mild, 12/29/17) All Systems: reviewed and negative except above Subjective calm in bed Objective Last 24 Hour Vital Signs Date Time Temp Pulse Resp B/P (MAP) Pulse Ox O2 Delivery O2 Flow Rate FiO2 01/01/18 10:25 98.0 72 14 102/57 99 Nasal Cannula 3 98.0 01/01/18 10:18 85 17 104/61 99 Nasal Cannula 3 01/01/18 10:13 77 19 102/60 99 Nasal Cannula 3 01/01/18 10:11 208.8 77 18 98 01/01/18 10:10 208.2 78 16 98 01/01/18 10:08 97.9 85 21 103/62 99 Nasal Cannula 3 97.9 01/01/18 04:00 87 01/01/18 04:00 87 01/01/18 00:00 68 12/31/17 21:00 Room Air 12/31/17 20:00 84 12/31/17 20:00 98.2 75 18 123/71 (88) 96 98.2 12/31/17 16:00 97.8 80 18 105/60 (75) 97 97.8 12/31/17 16:00 74 12/31/17 12:00 97.7 77 18 99/45 (63) 96 97.7 12/31/17 12:00 70 Intake and Output 12/31/17 01/01/18 19:00 07:00 Intake Total 250 ml 958 ml Output Total 400 ml 1000 ml Balance -150 ml -42 ml Intake Oral 250 ml 240 ml IV Total 718 ml Output Urine Total 400 ml 1000 ml Height (Feet): 5 Height (Inches): 8.00 Weight (Pounds): 168 General Appearance: lethargic EENT: normal ENT inspection Neck: normal alignment Cardiovascular: normal peripheral pulses, normal rate, regular rhythm Respiratory/Chest: chest wall non-tender, lungs clear, normal breath sounds Abdomen: normal bowel sounds, non tender, soft Extremities: normal inspection Edema: no edema noted Arm (L), no edema noted Arm (R), no edema noted Leg (L), no edema noted Leg (R), no edema noted Pedal (L), no edema noted Pedal (R), no edema noted Generalized Neurologic: motor weakness Skin: normal pigmentation, warm/dry Micheal Tierney DO Jan 01, 2018 11:47
[2018-01-01 12:00] VITALS: BP 103/61
[2018-01-01 12:04] LABS: BASOPHILS % (AUTO) 0.8 % (0.0-2.0); EOSINOPHILS % (AUTO) 2.2 % (0.0-3.0); HEMATOCRIT 41.1 % (42.0-52.0); HEMOGLOBIN 13.8 G/DL (14.2-18.0); LYMPHOCYTES % (AUTO) 24.1 % (20.0-45.0); MEAN CORPUSCULAR VOLUME 83 FL (80-99); MONOCYTES % (AUTO) 7.7 % (1.0-10.0); NEUTROPHILS % (AUTO) 65.2 % (45.0-75.0); PLATELET COUNT 192 K/UL (150-450); RED BLOOD COUNT 4.92 M/UL (4.70-6.10); RED CELL DISTRIBUTION WIDTH 11.1 % (11.6-14.8); WHITE BLOOD COUNT 8.7 K/UL (4.8-10.8)
[2018-01-01 12:10] LABS: ANION GAP 7 mmol/L (5-15); BLOOD UREA NITROGEN 9 mg/dL (7-18); CALCIUM 8.5 MG/DL (8.5-10.1); CARBON DIOXIDE 25 MMOL/L (21-32); CHLORIDE 108 MMOL/L (98-107); POTASSIUM 3.6 MMOL/L (3.5-5.1); SODIUM 140 MMOL/L (136-145)
--- NOTE | 2018-01-01 12:50 | Pulmonology Progress Note ---
Assessment/Plan Problems: (1) Upper GI bleeding (2) COPD (chronic obstructive pulmonary disease) (3) Psychosis (4) Seizure disorder Assessment/Plan EGD showed gastritis h/h stable symptomatic treatment Subjective ROS Limited/Unobtainable: No Constitutional: Reports: no symptoms HEENT: Repors: no symptoms Respiratory: Reports: no symptoms Allergies: Coded Allergies: CHLORPROMAZINE (Verified Allergy, Mild, 12/29/17) HALOPERIDOL (Verified Allergy, Mild, 12/29/17) PHENOBARBITAL (Verified Allergy, Mild, 12/29/17) Objective Last 24 Hour Vital Signs Date Time Temp Pulse Resp B/P (MAP) Pulse Ox O2 Delivery O2 Flow Rate FiO2 01/01/18 10:25 98.0 72 14 102/57 99 Nasal Cannula 3 98.0 01/01/18 10:18 85 17 104/61 99 Nasal Cannula 3 01/01/18 10:13 77 19 102/60 99 Nasal Cannula 3 01/01/18 10:11 208.8 77 18 98 01/01/18 10:10 208.2 78 16 98 01/01/18 10:08 97.9 85 21 103/62 99 Nasal Cannula 3 97.9 01/01/18 04:00 87 01/01/18 04:00 87 01/01/18 00:00 68 12/31/17 21:00 Room Air 12/31/17 20:00 84 12/31/17 20:00 98.2 75 18 123/71 (88) 96 98.2 12/31/17 16:00 97.8 80 18 105/60 (75) 97 97.8 12/31/17 16:00 74 Intake and Output 12/31/17 01/01/18 19:00 07:00 Intake Total 250 ml 958 ml Output Total 400 ml 1000 ml Balance -150 ml -42 ml Intake Oral 250 ml 240 ml IV Total 718 ml Output Urine Total 400 ml 1000 ml General Appearance: WD/WN HEENT: normocephalic, anicteric Respiratory/Chest: lungs clear, no respiratory distress, chest wall tender Cardiovascular: regular rhythm Abdomen: normal bowel sounds, soft, non tender Skin: no rash Microbiology Date/Time Source Procedure Growth Status 12/29/17 23:30 Nasal Nares MRSA Culture - Final Staphylococcus Aureus - Mrsa Complete 12/30/17 23:00 Rectum VRE Culture - Final NO VANCOMYCIN RESISTANT ENTEROCOCCUS ... Complete 12/29/17 23:30 Rectum - Final NO CARBAPENEM-RESISTANT ENTEROBACTERI... Complete Laboratory Tests 01/01/18 11:20: White Blood Count 8.7, Red Blood Count 4.92, Hemoglobin 13.8L, Hematocrit 41.1L , Mean Corpuscular Volume 83, Mean Corpuscular Hemoglobin 28.1, Mean Corpuscular Hemoglobin Concent 33.6, Red Cell Distribution Width 11.1L, Platelet Count 192, Mean Platelet Volume 8.9, Neutrophils (%) (Auto) 65.2, Lymphocytes (%) (Auto) 24.1, Monocytes (%) (Auto) 7.7, Eosinophils (%) (Auto) 2.2, Basophils (%) (Auto) 0.8 01/01/18 12:00: Sodium Level 140, Potassium Level 3.6, Chloride Level 108H, Carbon Dioxide Level 25, Anion Gap 7, Blood Urea Nitrogen 9, Creatinine 1.0, Estimat Glomerular Filtration Rate > 60, Glucose Level 105, Calcium Level 8.5 Current Medications Medications (Trade) Dose Ordered Sig/Justin Route PRN Reason Start Time Stop Time Status Last Admin Dose Admin Acetaminophen (Tylenol) 325 mg Q4H PRN ORAL Pain Scale (3-5) 12/30/17 01:45 01/29/18 01:44 Acetaminophen/ Hydrocodone Bitart ([place] 5/325) 1 tab Q1H PRN ORAL Mild Pain (Pain Scale 1-3) 01/01/18 09:15 01/01/18 16:00 Acetaminophen/ Hydrocodone Bitart ([place] 5/325) 1 tab Q4H PRN ORAL For Pain 12/30/17 01:45 01/06/18 01:44 Acetaminophen/ Hydrocodone Bitart ([place] 7.5/325) 1 tab Q1H PRN ORAL Moderate Pain (Pain Scale 4-6) 01/01/18 09:15 01/01/18 16:00 Al Hydroxide/Mg Hydroxide (Mylanta) 15 ml Q1H PRN ORAL gi upset 01/01/18 09:15 01/01/18 16:00 Al Hydroxide/Mg Hydroxide (Mylanta) 30 ml Q6H PRN ORAL Abdominal cramps 12/30/17 21:44 01/29/18 21:43 12/30/17 21:47 Aripiprazole (Abilify) 30 mg DAILY ORAL 12/30/17 09:00 01/29/18 08:59 12/31/17 10:11 Atorvastatin Calcium (Lipitor) 5 mg BEDTIME ORAL 12/30/17 21:00 01/29/18 20:59 12/31/17 20:33 Atropine Sulfate (Atropine 0.4mg/ ml) 0.5 mg Q5M PRN IVP HR<40 01/01/18 09:15 01/01/18 16:00 Bisacodyl (Dulcolax) 10 mg DAILY ORAL 12/30/17 09:00 01/29/18 08:59 12/31/17 10:11 Clonazepam (KlonoPIN) 1 mg Q12HR ORAL 12/30/17 09:00 01/06/18 08:59 12/31/17 20:33 Dextrose/Sodium Chloride 1,000 ml @ 60 mls/hr [id number] IV 12/30/17 03:00 01/29/18 02:59 01/01/18 04:32 Diphenhydramine HCl (Benadryl) 25 mg Q15M PRN IVP Itching 01/01/18 09:15 01/01/18 16:00 Divalproex Sodium (Depakote) 500 mg Q12HR ORAL 12/30/17 09:00 01/29/18 08:59 12/30/17 08:27 Docusate Sodium (Colace) 100 mg DAILY ORAL 12/30/17 09:00 01/29/18 08:59 Fentanyl Citrate (Sublimaze 100 mcg/2 mL) 25 mcg Q10M PRN IV Moderate Pain (Pain Scale 4-6) 01/01/18 09:15 01/01/18 16:00 Hydralazine HCl (Apresoline) 5 mg Q30M PRN IV SBP>160 / DBP>90 01/01/18 09:15 01/01/18 16:00 Hydromorphone HCl (Dilaudid) 0.5 mg Q15M PRN IVP Severe Pain (Pain Scale 7-10) 01/01/18 09:15 01/01/18 16:00 Ketorolac Tromethamine (Toradol 30mg) 15 mg Q1H PRN IV Moderate Breakthru Pain (5-7) 01/01/18 09:15 01/01/18 16:00 Ketorolac Tromethamine (Toradol 30mg) 30 mg Q1H PRN IV Severe Breakthru Pain (>7) 01/01/18 09:15 01/01/18 16:00 Lactated Ringer's 1,000 ml @ 10 mls/hr Q24H IVLG 01/01/18 09:09 01/01/18 16:00 Lorazepam (Ativan 2mg/ml 1ml) 1 mg Q15M PRN IV For Anxiety 01/01/18 09:15 01/01/18 16:00 Lorazepam (Ativan) 1 mg Q6H PRN ORAL For Anxiety 12/30/17 14:55 01/06/18 14:54 Magnesium Hydroxide (Mom) 30 ml DAILY ORAL 12/30/17 09:00 01/29/18 08:59 Meperidine HCl (Demerol) 25 mg Q5M PRN IVP Shivering.May repeat x 1 01/01/18 09:15 01/01/18 16:00 Midazolam HCl (Versed 2mg/2ml vial) 1 mg Q15M PRN IVP For Anxiety 01/01/18 09:15 01/01/18 16:00 Ondansetron HCl (Zofran) 4 mg Q1H PRN IVP Nausea & Vomiting 01/01/18 09:15 01/01/18 16:00 Oxycodone/ Acetaminophen (Percocet 5-325) 1 tab Q1H PRN ORAL Severe Pain (Pain Scale 7-10) 01/01/18 09:15 01/01/18 16:00 Pantoprazole (Protonix) 40 mg DAILY ORAL 12/30/17 13:00 01/29/18 12:59 12/31/17 10:11 Quetiapine Fumarate (SEROquel) 300 mg DAILY@2100 ORAL 12/31/17 21:00 01/29/18 08:59 12/31/17 20:33 Sennosides (Senokot) 1 tab DAILY PRN ORAL constipation 12/30/17 03:45 01/29/18 01:44 Trazodone HCl (Desyrel) 50 mg BEDTIME ORAL 12/30/17 21:00 01/29/18 20:59 12/31/17 20:32 Lonnie Small MD Jan 01, 2018 12:50
--- NOTE | 2018-01-01 13:35 | Infectious Diseases Prog Note ---
Assessment/Plan Assessment/Plan ASSESSMENT: 1. The patient is a 57-year-old male with status post leukocytosis 2. HIV, the patient is a poor historian , uknown CD4 and VL 3. seizure disorder. 4. Bipolar disorder. 5. Probable UGIB (coffee ground emesis at residential) - s/p EGD: esophagitis PLAN: 1. We will monitor the patient off of antibiotics. 2. f/u CD4 count and HIV screen., HIV VL 3. f/u Hepatitis B and C serology. 4. Records from residential re HIV meds 5. aspiration precautions Subjective Allergies: Coded Allergies: CHLORPROMAZINE (Verified Allergy, Mild, 12/29/17) HALOPERIDOL (Verified Allergy, Mild, 12/29/17) PHENOBARBITAL (Verified Allergy, Mild, 12/29/17) Subjective afebrile leukocytosis resolved off abx Objective Vital Signs Last 24 Hour Vital Signs Date Time Temp Pulse Resp B/P (MAP) Pulse Ox O2 Delivery O2 Flow Rate FiO2 01/01/18 12:00 97.8 75 18 103/61 (75) 95 97.8 01/01/18 10:25 98.0 72 14 102/57 99 Nasal Cannula 3 98.0 01/01/18 10:18 85 17 104/61 99 Nasal Cannula 3 01/01/18 10:13 77 19 102/60 99 Nasal Cannula 3 01/01/18 10:11 208.8 77 18 98 01/01/18 10:10 208.2 78 16 98 01/01/18 10:08 97.9 85 21 103/62 99 Nasal Cannula 3 97.9 01/01/18 09:00 Room Air 01/01/18 08:00 87 01/01/18 04:00 87 01/01/18 04:00 87 01/01/18 00:00 68 12/31/17 21:00 Room Air 12/31/17 20:00 84 12/31/17 20:00 98.2 75 18 123/71 (88) 96 98.2 12/31/17 16:00 97.8 80 18 105/60 (75) 97 97.8 12/31/17 16:00 74 Height (Feet): 5 Height (Inches): 8.00 Weight (Pounds): 168 Objective General Appearance: lethargic EENT: normal ENT inspection Neck: normal alignment Cardiovascular: normal peripheral pulses, normal rate, regular rhythm Respiratory/Chest: chest wall non-tender, lungs clear, normal breath sounds Abdomen: normal bowel sounds, non tender, soft Extremities: normal inspection Edema: no edema noted Arm (L), no edema noted Arm (R), no edema noted Leg (L), no edema noted Leg (R), no edema noted Pedal (L), no edema noted Pedal (R), no edema noted Generalized Neurologic: motor weakness Skin: normal pigmentation, warm/dry Microbiology Date/Time Source Procedure Growth Status 12/29/17 23:30 Nasal Nares MRSA Culture - Final Staphylococcus Aureus - Mrsa Complete 12/30/17 23:00 Rectum VRE Culture - Final NO VANCOMYCIN RESISTANT ENTEROCOCCUS ... Complete 12/29/17 23:30 Rectum - Final NO CARBAPENEM-RESISTANT ENTEROBACTERI... Complete Laboratory Tests Test 01/01/18 11:20 01/01/18 12:00 White Blood Count 8.7 K/UL (4.8-10.8) Red Blood Count 4.92 M/UL (4.70-6.10) Hemoglobin 13.8 G/DL (14.2-18.0) L Hematocrit 41.1 % (42.0-52.0) L Mean Corpuscular Volume 83 FL (80-99) Mean Corpuscular Hemoglobin 28.1 PG (27.0-31.0) Mean Corpuscular Hemoglobin Concent 33.6 G/DL (32.0-36.0) Red Cell Distribution Width 11.1 % (11.6-14.8) L Platelet Count 192 K/UL (150-450) Mean Platelet Volume 8.9 FL (6.5-10.1) Neutrophils (%) (Auto) 65.2 % (45.0-75.0) Lymphocytes (%) (Auto) 24.1 % (20.0-45.0) Monocytes (%) (Auto) 7.7 % (1.0-10.0) Eosinophils (%) (Auto) 2.2 % (0.0-3.0) Basophils (%) (Auto) 0.8 % (0.0-2.0) Sodium Level 140 MMOL/L (136-145) Potassium Level 3.6 MMOL/L (3.5-5.1) Chloride Level 108 MMOL/L (98-107) H Carbon Dioxide Level 25 MMOL/L (21-32) Anion Gap 7 mmol/L (5-15) Blood Urea Nitrogen 9 mg/dL (7-18) Creatinine 1.0 MG/DL (0.55-1.30) Estimat Glomerular Filtration Rate > 60 mL/min (>60) Glucose Level 105 MG/DL (74-106) Calcium Level 8.5 MG/DL (8.5-10.1) Current Medications Medications (Trade) Dose Ordered Sig/Justin Route PRN Reason Start Time Stop Time Status Last Admin Dose Admin Acetaminophen (Tylenol) 325 mg Q4H PRN ORAL Pain Scale (3-5) 12/30/17 01:45 01/29/18 01:44 Acetaminophen/ Hydrocodone Bitart ([place] 5/325) 1 tab Q1H PRN ORAL Mild Pain (Pain Scale 1-3) 01/01/18 09:15 01/01/18 16:00 Acetaminophen/ Hydrocodone Bitart ([place] 5/325) 1 tab Q4H PRN ORAL For Pain 12/30/17 01:45 01/06/18 01:44 Acetaminophen/ Hydrocodone Bitart ([place] 7.5/325) 1 tab Q1H PRN ORAL Moderate Pain (Pain Scale 4-6) 01/01/18 09:15 01/01/18 16:00 Al Hydroxide/Mg Hydroxide (Mylanta) 15 ml Q1H PRN ORAL gi upset 01/01/18 09:15 01/01/18 16:00 Al Hydroxide/Mg Hydroxide (Mylanta) 30 ml Q6H PRN ORAL Abdominal cramps 12/30/17 21:44 01/29/18 21:43 12/30/17 21:47 Aripiprazole (Abilify) 30 mg DAILY ORAL 12/30/17 09:00 01/29/18 08:59 12/31/17 10:11 Atorvastatin Calcium (Lipitor) 5 mg BEDTIME ORAL 12/30/17 21:00 01/29/18 20:59 12/31/17 20:33 Atropine Sulfate (Atropine 0.4mg/ ml) 0.5 mg Q5M PRN IVP HR<40 01/01/18 09:15 01/01/18 16:00 Bisacodyl (Dulcolax) 10 mg DAILY ORAL 12/30/17 09:00 01/29/18 08:59 12/31/17 10:11 Clonazepam (KlonoPIN) 1 mg Q12HR ORAL 12/30/17 09:00 01/06/18 08:59 12/31/17 20:33 Dextrose/Sodium Chloride 1,000 ml @ 60 mls/hr [id number] IV 12/30/17 03:00 01/29/18 02:59 01/01/18 04:32 Diphenhydramine HCl (Benadryl) 25 mg Q15M PRN IVP Itching 01/01/18 09:15 01/01/18 16:00 Divalproex Sodium (Depakote) 500 mg Q12HR ORAL 12/30/17 09:00 01/29/18 08:59 12/30/17 08:27 Docusate Sodium (Colace) 100 mg DAILY ORAL 12/30/17 09:00 01/29/18 08:59 Fentanyl Citrate (Sublimaze 100 mcg/2 mL) 25 mcg Q10M PRN IV Moderate Pain (Pain Scale 4-6) 01/01/18 09:15 01/01/18 16:00 Hydralazine HCl (Apresoline) 5 mg Q30M PRN IV SBP>160 / DBP>90 01/01/18 09:15 01/01/18 16:00 Hydromorphone HCl (Dilaudid) 0.5 mg Q15M PRN IVP Severe Pain (Pain Scale 7-10) 01/01/18 09:15 01/01/18 16:00 Ketorolac Tromethamine (Toradol 30mg) 15 mg Q1H PRN IV Moderate Breakthru Pain (5-7) 01/01/18 09:15 01/01/18 16:00 Ketorolac Tromethamine (Toradol 30mg) 30 mg Q1H PRN IV Severe Breakthru Pain (>7) 01/01/18 09:15 01/01/18 16:00 Lactated Ringer's 1,000 ml @ 10 mls/hr Q24H IVLG 01/01/18 09:09 01/01/18 16:00 Lorazepam (Ativan 2mg/ml 1ml) 1 mg Q15M PRN IV For Anxiety 01/01/18 09:15 01/01/18 16:00 Lorazepam (Ativan) 1 mg Q6H PRN ORAL For Anxiety 12/30/17 14:55 01/06/18 14:54 Magnesium Hydroxide (Mom) 30 ml DAILY ORAL 12/30/17 09:00 01/29/18 08:59 Meperidine HCl (Demerol) 25 mg Q5M PRN IVP Shivering.May repeat x 1 01/01/18 09:15 01/01/18 16:00 Midazolam HCl (Versed 2mg/2ml vial) 1 mg Q15M PRN IVP For Anxiety 01/01/18 09:15 01/01/18 16:00 Ondansetron HCl (Zofran) 4 mg Q1H PRN IVP Nausea & Vomiting 01/01/18 09:15 01/01/18 16:00 Oxycodone/ Acetaminophen (Percocet 5-325) 1 tab Q1H PRN ORAL Severe Pain (Pain Scale 7-10) 01/01/18 09:15 01/01/18 16:00 Pantoprazole (Protonix) 40 mg DAILY ORAL 12/30/17 13:00 01/29/18 12:59 12/31/17 10:11 Quetiapine Fumarate (SEROquel) 300 mg DAILY@2100 ORAL 12/31/17 21:00 01/29/18 08:59 12/31/17 20:33 Sennosides (Senokot) 1 tab DAILY PRN ORAL constipation 12/30/17 03:45 01/29/18 01:44 Trazodone HCl (Desyrel) 50 mg BEDTIME ORAL 12/30/17 21:00 01/29/18 20:59 12/31/17 20:32 Laureen Bautista M.D. Jan 01, 2018 13:35
--- NOTE | 2018-01-01 14:15 | Consultation ---
DATE OF CONSULTATION: 12/31/2017 INFECTIOUS DISEASE CONSULTATION CONSULTING PHYSICIAN: Sedrick Christiansen M.D. REFERRING PHYSICIAN: Micheal Tierney D.O. REASON FOR CONSULTATION: Evaluation of the patient with leukocytosis, antibiotic management, . HISTORY OF PRESENT ILLNESS: The patient is a 57-year-old male who was transferred from for probable GI bleed. The patient has history of bipolar disorder and is poor historian. with bloody vomiting. The patient attributes this to having too many due to that. The patient is scheduled for upper endoscopy tomorrow admission, the patient was found to have leukocytosis. Infectious Disease consultation has been requested for further evaluation of the patient and antibiotic management. PAST MEDICAL HISTORY: 1. History of HIV of unknown CD4 count viral load. 2. History of bipolar disorder. ALLERGIES: Haldol and Thorazine. SOCIAL HISTORY: FAMILY HISTORY: Noncontributory. MEDICATIONS: Off of antibiotics. PHYSICAL EXAMINATION: VITAL SIGNS: Temperature 98.2, pulse 83, respiratory rate 18, and blood pressure 104/62. HEENT: Mild pale conjunctivae. No icterus. NECK: No lymphadenopathy. CHEST: Clear. HEART: S1 and S2. ABDOMEN: Soft. EXTREMITIES: No cyanosis at this time. NEUROLOGIC: Awake. LABORATORY DATA: Alkaline phosphatase is 120. ALT is unremarkable. ASSESSMENT: 1. The patient is a 57-year-old male with status post leukocytosis . 2. HIV, the patient is a poor historian medical condition seizure disorder. 3. Bipolar disorder. PLAN: 1. We will monitor the patient off of antibiotics. 2. We will check CD4 count and HIV screen. 3. Check Hepatitis B and C serology. 4. I will get further information regarding the patient's HIV treatment and need for treatment to resume his medications. 5. EGD as per GI [facility] drm consultant. Sedrick Christiansen M.D. DR: EVELYN JOB#: [id number] CC:
[2018-01-01 16:00] VITALS: BP 110/79
--- NOTE | 2018-01-01 16:30 | Procedure Note ---
DATE OF PROCEDURE: 01/01/2018 SURGEON: Jose Armando Sultana M.D. ANESTHESIOLOGIST: Dr. Valderrama. REFERRING PHYSICIAN: Micheal Tierney D.O. PROCEDURE: Upper endoscopy with biopsy. ANESTHESIA: Per Dr. Valderrama. INSTRUMENT: Olympus adult flexible upper endoscope. INDICATION: Hematemesis. The procedure, risks, benefits, and possible consequences, including hemorrhage, aspiration, perforation and infection, and alternative treatments, were explained to the patient/legal guardian by Dr. Jose Armando Sultana and the patient/legal guardian understood and accepted these risks. DESCRIPTION OF PROCEDURE: After informed consent was obtained and the patient was adequately sedated, Olympus upper endoscope was advanced from the mouth to the second portion of duodenum and retroflexion was performed in the stomach. The patient had minimum distal esophagitis healing. No evidence of any hiatal hernia. In the stomach, there was diffuse gastritis. Random biopsies from antrum and body were obtained to rule out H. pylori infection, otherwise the rest of the upper endoscopic examination grossly looked within normal limits. The patient tolerated the procedure very well without any complication. SUMMARY OF FINDINGS: 1. Minimal esophagitis. 2. Gastritis, status post biopsy. RECOMMENDATIONS: Follow up biopsy results and treat accordingly. The patient is to be on PPI daily. Resume diet. Discharge planning per primary team. I want to thank Dr. Micheal Tierney for this kind referral. Jose Armando Sultana M.D. DR: Radu JOB#: [id number] CC: Micheal Tierney D.O.
--- NOTE | 2018-01-02 03:00 | Consultation ---
DATE OF CONSULTATION: 12/31/2017 "NOTE: POOR AUDIO QUALITY" CONSULTING PHYSICIAN: Rosa Smith PsyD. TREATING ATTENDING PHYSICIAN: Micheal Tierney D.O. HISTORY OF PRESENT ILLNESS: The patient is a male patient, who is 57-year-old. He is from [facility]. . The patient is brought in to the hospital for gastrointestinal disease and states that he had vomited blood. The patient was referred for psychotherapeutic services because he had been anxious, agitated, and irritable. This clinician assessed this patient. The patient continues to remain irritable. He has been . He states he has has been taking medications for it . The patient has a long-term history of schizoaffective disorder. The patient was complaining stating that he has been taking psychotropic medications. However, he believes that he no longer has the mental illness . His medications paranoid. He states that he has been ____ against him. The patient is . The patient is very paranoid, irritable, anxious, labile, and . He denies suicidal or homicidal thoughts of ideations. Denies any auditory or visual hallucinations. . PAST MEDICAL HISTORY: He has a history of GI bleeding and HIV. ALLERGIES: The patient is allergic to phenobarbital, Haldol, and Thorazine. SUBSTANCE ABUSE HISTORY: The patient denies any history of alcohol use . PAST PSYCHIATRIC HISTORY: The patient does have a history of schizoaffective disorder, bipolar type, has been treated with psychotropic medications in the past. SOCIAL HISTORY: The patient is a 57-year-old single male patient from [facility], financially sustained through [employer]. MENTAL STATUS EXAMINATION: The patient is alert and oriented to person and place. At this time, his mood is anxious. Affect . Thought process . Thought content is paranoid. He has poor attention and concentration. Poor insight, judgment, and impulse control. DIAGNOSES: AXIS I: Schizoaffective disorder, bipolar type. AXIS II: . AXIS III: . AXIS IV: . AXIS V: . PLAN: . Psychotherapy service is provided. Rosa Smith PsyD. DR: NEGRITA JOB#: [id number] CC:
--- NOTE | 2018-01-02 23:00 | Progress Note ---
DATE: 01/01/2018 "NOTE: POOR AUDIO QUALITY" PSYCHOTHERAPY CONSULTATION PROGRESS NOTE TREATING ATTENDING PHYSICIAN: Micheal Tierney D.O. SUBJECTIVE: The patient is a 57-year-old male patient from [facility]. The patient has a history of mental illness. He has thoughts of anxiety, agitation, irritability, poor frustration tolerance, will likely need participation in treatment, and he remains very paranoid. He has had poor frustration tolerance, has poor insight and judgment, and easily withdrawn. He has suicidal and homicidal thoughts of ideation. Because of his agitation, provided the patient with supportive psychotherapy, reality orientation, coping skills, . DIAGNOSIS: AXIS I: 1. Schizoaffective disorder, bipolar type. 2. with anxiety. PLAN: Coping skills for this patient. Continue with behavioral management. This clinician has reviewed the patient's chart. Discussed treatment with treatment team. . Psychotherapy service is provided. Rosa Smith PsyD. DR: NEGRITA JOB#: [id number] CC:
--- NOTE | 2018-01-04 11:38 | Discharge Summary ---
Discharge Summary Discharge Summary _ DATE OF ADMISSION: 12/29/2017 DATE OF DISCHARGE: 01/01/2018 REASON FOR ADMISSION: 57 years old female with past medical history of COPD, seizure disorder, HIV status, bipolar disorder,psychiatric disorder, presented to emergency room for evaluation due to multiple coffee-ground emesis at the facility. Upon arrival patient complained of abdominal pain, epigastric, nonradiating 8 out of 10 on a scale 1-10. He denied fever or chills . He denied chest pain or shortness of breath. Vital signs revealed tachycardia and low blood pressure. Laboratory workup revealed leukocytosis with WBC 16.3. Stable hemoglobin and hematocrit. BUN 20 creatinine 1.7 . Glucose 148. Stable LFT, lipase and electrolytes. EKG revealed sinus tachycardia, no acute ischemic changes. Patient admitted with diagnoses of upper GI bleeding, renal insufficiency, HIV status post, bipolar disorder. CONSULTANTS: pulmonary Dr. Small ID specialist Dr. Lo GI specialist Dr. Sultana psychiatrist Dr. Arellano HOSPITAL COURSE: Patient admitted and initially kept nothing by mouth. Patient started on the IV fluids. Pain management and antiemetics provided as needed . GI specialist closely followed. Patient undergone upper endoscopy with biopsy, which revealed minimal esophagitis and gastritis ,status post biopsy . Patient started on PPI. Diet was slowly resumed and advanced as tolerated. Biopsy results revealed mild chronic gastritis, but no H. pylori infection. Patient was able to tolerate diet. Hemoglobin and hematocrit remained stable. Leukocytosis resolved, likely reactive. No fevers. Renal parameters and electrolytes were closely monitored. Electrolytes corrected as needed, and nephrotoxins were avoided. Prior to discharge, acute kidney injury resolved : BUN 9 and creatinine 1.0. Hepatitis panel was negative. HIV status revealed positive HIV type I infection . T cell subsets revealed absolute CD4 count of 692. [employer] closely followed. Supplemental oxygen provided as needed to keep pulse oximetry above 92%. Pulmonary toilet was on standby as needed. No evidence of respiratory distress. Seizure precautions were maintained, no evidence of seizure activity while in the hospital . Depakote continued . Psychiatrist seen and evaluated patient and diagnosed patient with schizoaffective disorder bipolar type. Psychiatric medication regimen was optimized. Patient was working with physical and occupational therapists. Supportive care provided. Bowel regimen instituted. Pain management addressed as needed. Patient clinically improved and was stable for discharge to correction facility for continuation of care. FINAL DIAGNOSES: Upper GI bleeding s/p EGD ( with findings of gastritis and minimal esophagitis) Gastritis Acute kidney injury- resolved COPD Seizure disorder HIV status Schizoaffective disorder bipolar type DISCHARGE MEDICATIONS: See Medication Reconciliation list. DISCHARGE INSTRUCTIONS: Patient was discharged to the correction facility. Follow up with medical doctor at the facility. I have been assigned to dictate discharge summary for this account. I was not involved in the patient's management. Kathleen Banda NP Jan 04, 2018 11:38
== END 2018-01-01 18:46 | DRG 378 ==
LOC: EDBD 19:58 → EDBEDREQ 20:16 → EMR 21:16 → 2E 21:32 → EDBEDREQ 21:54 → 2E 01-01 09:29
PROC: 0DB68ZX Excision of Stomach, Via Natural or Artificial Opening Endoscopic, Diagnostic (ICD-10-PCS; principal; 2018-01-01 09:46)
PROC: 0DB78ZX Excision of Stomach, Pylorus, Via Natural or Artificial Opening Endoscopic, Diagnostic (ICD-10-PCS; principal; 2018-01-01 09:46)
DX: K92.2 Gastrointestinal hemorrhage, unspecified (principal); B20 Human immunodeficiency virus [HIV] disease; N17.9 Acute kidney failure, unspecified; Z88.8 Allergy status to other drugs, medicaments and biological substances; J44.9 Chronic obstructive pulmonary disease, unspecified; F29 Unspecified psychosis not due to a substance or known physiological condition; G40.909 Epilepsy, unspecified, not intractable, without status epilepticus; F17.200 Nicotine dependence, unspecified, uncomplicated; F25.0 Schizoaffective disorder, bipolar type; K29.70 Gastritis, unspecified, without bleeding; K20.9 Esophagitis, unspecified
CPT/HCPCS: 36415; 80048; 80053; 83690; 83735; 84100; 85025; 85610; 85730; 86360; 86689; 86703; 86705; 86709; 86803; 86850; 86900; 86901; 87081; 87340; 94003; 94150; 96361; 96374; 99285; J2405